=== PATIENT | female | born 1975 | race Asian ===

== ENCOUNTER → 2019-01-21 | Outpatient (CLI) | payer BC ==
[2015-07-11 06:53] VITALS: BP 102/64
[~2019-01-21] MED LIST: NORCO 325 MG-51 TAB PO
== END ==
LOC: MAMMO 12:54
DX: Z12.31 Encounter for screening mammogram for malignant neoplasm of breast (principal)

== ENCOUNTER → 2020-02-24 | Outpatient (CLI) | payer BC ==
[2015-07-11 06:53] VITALS: BP 102/64
== END ==
LOC: MAMMO 15:53
DX: Z12.31 Encounter for screening mammogram for malignant neoplasm of breast (principal)